=== PATIENT | male | born 1970 | race American Indian/Alaskan Native ===

== ENCOUNTER 2018-02-04 13:36 | Emergency (ER) | payer OTHER ==
--- NOTE | 2018-02-04 13:48 | EDM.PDOC ---
ED HPI GENERAL MEDICAL PROBLEM - General Chief Complaint: Flank Pain Stated Complaint: FLANK PAINS Time Seen by Provider: 02/04/18 13:47 Source of Information: Reports: Patient, RN, RN Notes Reviewed History Limitations: Reports: No Limitations - History of Present Illness INITIAL COMMENTS - FREE TEXT/NARRATIVE: Pt presents to ER from work training at the [employer] with c/o RLQ abdominal pain that comes and goes without any known cause or association, and radiates back and forth from the Rt flank region. Pt admits to nausea. He denies vomiting, diarrhea, constipation, dysuria, hematuria, fever, chills, or abdominal distention. He rates the current pain 4/10, but the pain at maximal intensity is rated 9/10. Nothing makes the pain better or worse. He first felt the pain 3 days ago. Today the pain was much worse. 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 Right Flank Pain Score (Numeric/FACES): 8 - Related Data Allergies Allergy/AdvReac Type Severity Reaction Status Date / Time No Known Allergies Allergy Verified 02/04/18 13:46 Home Meds: Home Meds Aspirin [Halfprin] 81 mg PO DAILY 02/04/18 [History] Dulaglutide [Trulicity] 0.75 mg SQ WEEKLY 02/04/18 [History] Insulin Detemir [Levemir Flextouch] 50 unit SQ BEDTIME 02/04/18 [History] Insulin Detemir [Levemir Flextouch] 55 unit SQ ACBREAKFAST 02/04/18 [History] Lisinopril 10 mg PO DAILY 02/04/18 [History] glyBURIDE [Glyburide] 10 mg PO BID 02/04/18 [History] metFORMIN HCl [Metformin HCl] 1,000 mg PO BID 02/04/18 [History] Past Medical History Endocrine/Metabolic History: Reports: Diabetes, Type II, IDDM, Obesity/BMI 30+ - Past Surgical History Other Surgical History Comment: Denies any past surgeries. Social & Family History - Family History Cardiac: Reports: CAD, Heart Failure Endocrine/Metabolic: Reports: Diabetes, type II, Obesity/MBI 30+ - Tobacco Use Smoking Status *Q: Never Smoker - Alcohol Use Alcohol Use History: No - Recreational Drug Use Recreational Drug Use: No - Living Situation & Occupation Occupation: Employed ED ROS GENERAL - Review of Systems Review Of Systems: ROS reveals no pertinent complaints other than HPI. ED EXAM, GENERAL - Physical Exam Exam: See Below Exam Limited By: No Limitations General Appearance: Alert, WD/WN, No Apparent Distress, Obese Eye Exam: Bilateral Eye: Normal Inspection Nose: Normal Inspection, Normal Mucosa, No Blood Throat/Mouth: Normal Inspection, Normal Lips, Normal Teeth, Normal Gums, Normal Oropharynx, Normal Voice, No Airway Compromise Head: Atraumatic, Normocephalic Neck: Normal Inspection, Supple, Non-Tender, Full Range of Motion Respiratory/Chest: No Respiratory Distress, Lungs Clear, Normal Breath Sounds, No Accessory Muscle Use, Chest Non-Tender Cardiovascular: Normal Peripheral Pulses, Regular Rate, Rhythm, No Edema, No JVD GI/Abdominal: Normal Bowel Sounds, Soft, No Distention, No Abnormal Bruit, Tender (RLQ tenderness without rebound tenderness). No: Guarding, Rigid, Rebound (Male) Exam: Deferred Rectal (Males) Exam: Deferred Course - Vital Signs Last Recorded V/S: Last Vital Signs Temp 36.5 C 02/04/18 13:47 Pulse 97 02/04/18 13:47 Resp 18 02/04/18 13:47 BP 142/85 H 02/04/18 13:47 Pulse Ox 97 02/04/18 13:47 - Orders/Labs/Meds Labs: Laboratory Tests 02/04/18 02/04/18 02/04/18 Range/Units 13:47 14:05 14:05 WBC 7.6 (5.0-10.0) 10^3/uL RBC 4.62 (4.6-6.2) 10^6/uL Hgb 13.5 L (14.0-18.0) g/dL Hct 40.3 (40.0-54.0) % MCV 87.2 (80-100) fL MCH 29.2 (27.0-34.0) pg MCHC 33.5 (33.0-35.0) g/dL Plt Count 271 (150-450) 10^3/uL Neut % (Auto) 62.2 (42.2-75.2) % Lymph % (Auto) 28.4 (20.5-50.1) % [place] % (Auto) 7.0 (2-8) % Eos % (Auto) 2.1 (1.0-3.0) % Baso % (Auto) 0.3 (0.0-1.0) % Sodium 134 L (135-145) mmol/L Potassium 4.4 (3.6-5.0) mmol/L Chloride 98 L (101-111) mmol/L Carbon Dioxide 25.0 (21.0-31.0) mmol/L Anion Gap 15.4 BUN 20 H (7-18) mg/dL Creatinine 1.4 H (0.6-1.3) mg/dL Est Cr Clr Drug Dosing 67.35 mL/min Estimated GFR (MDRD) 54 BUN/Creatinine Ratio 14.28 Glucose 149 H (74-105) mg/dL Calcium 8.9 (8.4-10.2) mg/dl Total Bilirubin 0.6 (0.2-1.0) mg/dL AST 27 (10-42) IU/L ALT 30 (10-60) IU/L Alkaline Phosphatase 49 (42-121) IU/L Total Protein 7.3 (6.7-8.2) g/dl Albumin 3.7 (3.2-5.5) g/dl Globulin 3.6 Albumin/Globulin Ratio 1.03 Amylase 99 (28-100) U/L Lipase 36 (22-51) U/L Urine Color Yellow (YELLOW) Urine Appearance Clear (CLEAR) Urine pH 5.5 (5.0-9.0) Ur Specific [place] >= 1.030 (1.005-1.030) Urine Protein Negative (NEGATIVE) Urine Glucose (UA) Negative (NEGATIVE) Urine Ketones Negative (NEGATIVE) Urine Occult Blood Negative (NEGATIVE) Urine Nitrite Negative (NEGATIVE) Urine Bilirubin Negative (NEGATIVE) Urine Urobilinogen 0.2 (0.2-1.0) mg/dL Ur Leukocyte Esterase Negative (NEGATIVE) Urine RBC 0-5 /HPF Urine WBC Not seen (0-5/HPF) /HPF Ur Epithelial Cells Rare /HPF Urine Bacteria Not seen (0-FEW/HPF) /HPF Urine Mucus Not seen /LPF Meds: Medications Discontinued Medications Generic Name Dose Route Start Last Admin Trade Name Freq PRN Reason Stop Dose Admin Ondansetron HCl 4 mg 02/04/18 14:01 02/04/18 14:15 Zofran Odt PO 02/04/18 14:02 4 mg ONETIME ONE Administration - Radiology Interpretation Free Text/Narrative:: CT Abd/Pelvis: Findings suggestive of gallbladder disease with non-calcified stones. No pericystic inflammation seen. See Rad. report. CT Results Date: 02/04/18 - Re-Assessments/Exams Free Text/Narrative Re-Assessment/Exam: 02/04/18 16:03 Pt likely has biliary colic. No signs of infection, kidney stone, or appendicitis. No signs of acute cholecystitis. Pt is from [place] and september f/u there for further gallbladder evaluation as an outpt. Departure - Departure Time of Disposition: 16:00 Disposition: Home, Self-Care 01 Condition: Good Clinical Impression: Biliary colic, Right sided abdominal pain - Discharge Information *PRESCRIPTION DRUG MONITORING PROGRAM REVIEWED*: No *COPY OF PRESCRIPTION DRUG MONITORING REPORT IN PATIENT SLY: No Instructions: Cholelithiasis, [id number], Biliary Colic, Adult, Abdominal Pain, Adult, [id number] Forms: ED Department Discharge Additional Instructions: Rx: Zofran 4mg Rx: Hydrocodone APAP 5mg/325mg *Do not drive or work while under the influence of this medication. Follow up in clinic with your doctor for recheck, and further gallbladder evaluation.
[2018-02-04] MEDS ORDERED: Ondansetron 4 MG Tab.DIS PO ONE (14:01)
[2018-02-04 14:34] LABS: ANION GAP 15.4
--- NOTE | 2018-02-04 15:46 | CT ---
Clinical history: 47 year-old 270 pound diabetic male complaining of right flank pain. TECHNIQUE: Volume acquisition of data unenhanced CT scan of the abdomen and pelvis obtained while thi s obese patient was lying supine on the Siemens multi slice scanner [place], [place]. All data archived in the PACS system for storage, reformatting axial/sagittal/coronal planes and study. Interpretation: 1. Inhomogeneous dense gallbladder suggesting noncalcified intraluminal stones (no pericystic inflamm ation). 2. Small Foreign body (surgical clip?) mid transverse colon. 3. Multiple diverticula sigmoid colon without associated signs of inflammation i.e. no pericolonic ab scess, or inflammatory "dirty" fat. 4. Appendix not identified but no calcifications or changes RLQ. Apparent subcutaneous injections rig ht lower abdomen. 5. Unenhanced liver, stomach, spleen, pancreas, adrenal glands and kidneys unremarkable. Symmetricall y distended appearing urinary bladder (arteriovascular and phlebolith calcific densities in the pelvi s) without stones. Calcifications seminal vesicles. 6. Scattered calcifications normal caliber aortoiliac vessels. Mid lumbar disc disease with hypertrop hic spondylosis. 7. Normal cardiac silhouette. Lung bases clear. CONCLUSION: Suggest diseased gallbladder (ultrasound recommended). Sigmoid diverticulosis. Usual sign s of senescence. No renal stones or signs of obstructive uropathy.
== END 2018-02-04 16:11 | disposition home or self-care (01) ==
LOC: EDBD → DL.ED 13:36
DX: K80.50 Calculus of bile duct without cholangitis or cholecystitis without obstruction (principal); E11.9 Type 2 diabetes mellitus without complications; Z79.4 Long term (current) use of insulin; Z79.82 Long term (current) use of aspirin; Z79.899 Other long term (current) drug therapy
CPT/HCPCS: 36415; 74176; 80053; 81001; 82150; 83690; 85025; 99284; A9270